=== PATIENT | male | born 1990 ===

== ENCOUNTER 2022-01-08 22:50 | Emergency (ER) | payer BC ==
[2022-01-08] MEDS: Ketorolac 30 MG/ML SDV IVPUSH ONE (23:06)
[2022-01-08] MEDS: Ondansetron 4 MG/2 ML SDV IVPUSH ONE (23:06)
[2022-01-08] MEDS: Sodium Chloride 0.9% 1,000 ML IV ONE (23:06)
== END 2022-01-09 00:20 | disposition home or self-care (01) ==
LOC: CC.ED 22:50
DX: G43.909 Migraine, unspecified, not intractable, without status migrainosus (principal); Z88.2 Allergy status to sulfonamides
CPT/HCPCS: 96361; 96374; 96375; 99283; 99283-25; J1885; J2405; J7030